=== PATIENT | female | born 2000 | race Hispanic/Latino ===

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

== ENCOUNTER → 2023-12-28 08:46 | Outpatient (CLI) | payer OTHER, MEDICAID, SELFPAY ==
[2023-12-28 16:15] LABS: Follicle Stimulating Hormone 7.81 mIU/mL; Luteinizing Hormone 11.7 mIU/mL
[2023-12-28 23:29] LABS: Glucose 114 mg/dL (70-100); Sodium 155 mmol/L (137-145)
[2023-12-29 00:01] LABS: Cortisol AM (Before 10AM) 15.6 ug/dL (4.46-22.7)
[2023-12-29 05:39] LABS: T4 Total Thyroxine 6.48 ug/dL (5.5-11.0)
[2023-12-29 05:53] LABS: Thyroid Stimulating Hormone 5.88 uIU/mL (0.47-4.68)
[2023-12-29 18:12] LABS: IGF Binding Protein -3 3159 ug/L (2855-6559)
[2023-12-29 18:36] LABS: IGF-1 119 ng/mL (101-347)
[2023-12-30 15:19] LABS: Estriol <0.1 ng/mL (.)
[2024-01-03 10:27] LABS: Anti Mullerian Hormone 0.087 ng/mL (.)
== END ==
LOC: LAB 08:48
PROVIDERS: PCP Student in an Organized Health Care Education/Training Program; Referring Provider Pediatrics Pediatric Endocrinology; Visit Provider Pediatrics Pediatric Endocrinology
DX: E03.9 Hypothyroidism, unspecified (principal); E28.39 Other primary ovarian failure; Z85.841 Personal history of malignant neoplasm of brain
CPT/HCPCS: 36415; 82397; 82533; 82677; 82947; 83001; 83002; 83520; 84295; 84305; 84436; 84443

== ENCOUNTER → 2024-02-13 07:32 | Outpatient (CLI) | payer OTHER, MEDICAID, SELFPAY ==
[2024-02-13 10:32] LABS: Blood Urea Nitrogen 10 mg/dL (7-17); Carbon Dioxide 27 mmol/L (22-32); Chloride 105 mmol/L (98-107); Estimated Glomerular Filt Rate > 60 mL/min (>60); HEMOLYSIS < 15 (0-50); Potassium 3.8 mmol/L (3.4-5.1); Sodium 138 mmol/L (137-145)
[2024-02-13 10:49] LABS: Luteinizing Hormone 2.25 mIU/mL
[2024-02-13 11:03] LABS: Thyroid Stimulating Hormone 1.65 uIU/mL (0.47-4.68)
[2024-02-13 11:04] LABS: Estradiol, Total 26.3 pg/mL
[2024-02-13 13:34] LABS: Appearance Urine UA CLEAR; Bilirubin Urine UA NEGATIVE (NEGATIVE); Color Urine UA YELLOW; Glucose Urine UA NEGATIVE (Negative); Ketones Urine UA NEGATIVE (NEGATIVE); Leukocyte Esterase Urine UA 2+ (NEGATIVE); Nitrite Urine UA NEGATIVE (Negative); Occult Blood Urine UA TRACE-INTACT (Negative); Protein Urine UA NEGATIVE (Negative); Specific Gravity Urine UA <=1.005 (1.000-1.035); Urobilinogen Urine UA 0.2 E.U./dL (0.2)
[2024-02-13 13:35] LABS: pH Urine UA 5.5 (4.5-8.0)
[2024-02-13 13:36] LABS: Urine Volume 10mL (spun)
[2024-02-13 13:39] LABS: Bacteria Urine None Seen; RBC Urine None Seen (0-5/HPF); Squamous Epithelial Cell Urine 1-5 /HPF (0-5/HPF); WBC Urine 1-5/HPF (0-5/HPF)
[2024-02-14 14:18] LABS: Osmolality Urine 225 mOsmol/kg (.)
[2024-02-14 14:18] LABS: Osmolality, Serum 288 mOsmol/kg (275-295)
== END ==
LOC: LAB 07:34
PROVIDERS: PCP Student in an Organized Health Care Education/Training Program; Referring Provider Pediatrics Pediatric Endocrinology; Visit Provider Pediatrics Pediatric Endocrinology
DX: E03.9 Hypothyroidism, unspecified (principal); E28.39 Other primary ovarian failure; Z85.841 Personal history of malignant neoplasm of brain
CPT/HCPCS: 36415; 80051; 81003; 81015; 82565; 82670; 83001; 83002; 83930; 83935; 84439; 84443; 84520

== ENCOUNTER → 2025-04-22 07:26 | Outpatient (CLI) | payer OTHER, SELFPAY ==
[2025-04-22 07:52] LABS: Hematocrit 39.5 % (36-46); Hemoglobin 13.6 g/dL (12.0-16.0); Mean Corpuscular HGB Conc 34.3 % (30-36); Mean Corpuscular Hemoglobin 30.6 PG (26-34); Mean Corpuscular Volume 89.2 fL (80-100); Platelet Count 323 X10^3/uL (150-400)
[2025-04-22 08:04] LABS: Atypical Lymphocytes Percent 5.0 %; Eosinophils Percent Manual 3.0 % (2-4); Lymphocytes Percent Manual 23.0 % (25-45); Monocytes Percent Manual 5.0 % (2-11); Neutrophils Absolute Manual 5568 /uL (3000-5900); RBC Morphology Normal Morphology; Segmented Neutrophils Percent 64.0 % (38-70); Total Cells Counted 100
[2025-04-22 08:09] LABS: Hemoglobin A1C% w Est Avg Glu 6.1 % (4.0-6.0)
[2025-04-22 08:35] LABS: Alanine Aminotransferase 44 IU/L (<35); Albumin 4.5 g/dL (3.5-5.0); Albumin Globulin Ratio 1.5 (1.0-2.8); Alkaline Phosphatase 62 U/L (38-126); Blood Urea Nitrogen 11 mg/dL (7-17); Calcium 9.6 mg/dL (8.4-10.2); Carbon Dioxide 25 mmol/L (22-32); Chloride 103 mmol/L (98-107); Estimated Glomerular Filt Rate > 60 mL/min (>60); Globulin 3.1 g/dL (1.7-4.1); Glucose 106 mg/dL (70-99); HEMOLYSIS < 15 (0-50); Potassium 4.0 mmol/L (3.4-5.1); Sodium 138 mmol/L (137-145); Total Protein 7.6 g/dL (6.3-8.2)
[2025-04-22 09:02] LABS: TSH w/ Reflex to FT4 12.40 uIU/mL (0.47-4.68)
[2025-04-22 11:44] LABS: Free T4, Direct Thyroxine 0.65 ng/dL (0.78-2.19)
== END ==
PROVIDERS: PCP Student in an Organized Health Care Education/Training Program; Referring Provider Student in an Organized Health Care Education/Training Program; Visit Provider Student in an Organized Health Care Education/Training Program
DX: R73.03 Prediabetes (principal); E66.9 Obesity, unspecified
CPT/HCPCS: 36415; 80053; 83036; 84439; 84443; 85025

== ENCOUNTER → 2025-07-10 10:59 | Outpatient (CLI) | payer OTHER, SELFPAY ==
--- NOTE | 2025-07-10 16:51 | DIET.OUTPTC ---
Dietary Outpatient Consult Consult Date:07/10/25 Assessment:?24 y F referred to dietitian for prediabetes. Pt presents with mom Brie and father. Reports stopping chocolate coconut drink- doing coconut water instead (11 g CHO) Reports smaller CHO portion sizes at meals (1/3 c) and nuts for snack at night. Also notes incorporating more veggies and fruits at meals. Weight not taken, but parents note pt looks slimmer in the face. Offered weight taken in office as desired vs at home if desired, but weight not needed. Asked pt if she was hungry between meals with diet changes, pt responded with describing where her walnuts/nuts were in the kitchen. Diet Recall: B- eggs and tofu and spinach and 1/3 cup rice L-mostly at home chk and rice or eggs and rice 1/3 c S-pumpkin seeds/cashews and [facility] granola bar D-squash soup with non-starch vegs OR chk/rice/vegs; have been reducing CHO portion to 1/3 c 4 walnuts bed by 11 pm coconut water daily one serving fruit and yogurt as snack Fluids: water and cherokee 04/29/2508:07 Height 4 ft 3 in Weight 112 lb 4 oz BMI 30.3 Activity:[employer] 3x/wk 45 mins + free dancing; plan to walk more and gym in fall and winter Pertinent Labs:6.1 A1c Nutrition Diagnosis:? (improved) Excessive carbohydrate intake r/t intake of sugar sweetened/CHO beverages aeb chocolate coconut water and soda 2x/wk (improved) Altered nutrition related lab values (A1c) r/t previously not focused on carb content of food and serving size aeb A1c 6.1% -Intervention: Discussed the following topics: Reviewed diet recall Reviewed nutrition facts for coconut water and label reading Discussed can have more than 1/3 c CHO at meals, 2/3 c and can do 1/4 c nuts at bedtime Goals: -Continue with changes, can do 2/3 c CHO at meals, 1/4 cup nuts for bedtime snack EER:? 30-45 g CHO at meals, 15 g CHO at snack Monitoring/Evaluations:? F/u in 6 months, parents and pt monitoring CHO intake more closely and feel confident in changes for now but would like future f/u Electronically Signed by: Precious Dobbs Clinical Dietitian [address] [id number]
== END ==
LOC: DIET 10:59
PROVIDERS: PCP Student in an Organized Health Care Education/Training Program; Referring Provider Student in an Organized Health Care Education/Training Program
DX: R73.03 Prediabetes (principal); Z71.3 Dietary counseling and surveillance; Z68.30 Body mass index [BMI] 30.0-30.9, adult
CPT/HCPCS: 97803